=== PATIENT | female | born 1970 | race Caucasian/White ===

== ENCOUNTER 2020-06-28 15:23 | Emergency (ER) | payer OTHER ==
[~2020-06-28 15:23] MED LIST: AZITHROMYCIN250 MG PO; HCTZ25 MG PO; IMITREX50 MG PO; PRILOSEC20 MG PO; SUDAFED30 MG PO
[2020-06-28] MEDS ORDERED: VENTOLIN HFA18 GM INH (17:39)
[2020-06-28] MEDS ORDERED: NAPROXEN500 MG PO (17:39)
[2020-06-28] MEDS ORDERED: PHENERGAN25 M1 PO (17:39)
[2020-06-28] MEDS ORDERED: MEDROL 4MG DOSEP4 MG PO (17:39)
== END 2020-06-28 18:02 | disposition home or self-care (01) ==
LOC: FER 15:23
DX: U07.1 COVID-19 (principal); J10.1 Influenza due to other identified influenza virus with other respiratory manifestations; F17.210 Nicotine dependence, cigarettes, uncomplicated; Z91.040 Latex allergy status; Z91.012 Allergy to eggs
CPT/HCPCS: 99284

== ENCOUNTER 2020-09-10 20:42 | Emergency (ER) | payer OTHER ==
[~2020-09-10 20:42] MED LIST changes: +MEDROL 4MG DOSEP4 MG PO; +NAPROXEN500 MG PO; +PHENERGAN25 M1 PO; +VENTOLIN HFA18 GM INH
[2020-09-10] MEDS ORDERED: NORCO 5-325 TA1 EACH PO (22:15)
== END 2020-09-10 22:55 | disposition home or self-care (01) ==
LOC: FER 20:42
DX: L03.032 Cellulitis of left toe (principal); F17.210 Nicotine dependence, cigarettes, uncomplicated
CPT/HCPCS: 99283